=== PATIENT | female | born 2000 ===

== ENCOUNTER → 2021-05-19 | Outpatient (CLI) | payer BC ==
[~2021-05-19] MED LIST: AMOX500 PO; ANTOXYBENA OT; Amoxicillin875 MG PO; CEPH500 PO; HYDACE5 PO; RXSULTRISU; SULTRIDS PO; SULTRIEL
== END | disposition home or self-care (01) ==
LOC: LAB SHORT 12:00 → LAB 12:00
DX: J02.9 Acute pharyngitis, unspecified (principal)
CPT/HCPCS: 87081